=== PATIENT | male | born 1995 | race Caucasian/White ===

== ENCOUNTER 2021-07-14 11:37 | Emergency (ER) | payer OTHER ==
[2021-07-14 12:20] LABS: RED BLOOD COUNT 5.36 M/UL (4.20-5.50); WHITE BLOOD COUNT 6.6 K/UL (4.5-11.0)
[2021-07-14 12:35] LABS: BUN/CREATININE RATIO 9 (0-10)
== END 2021-07-14 14:30 | disposition home or self-care (01) ==
LOC: ER1 11:37
PROVIDERS: Physician Assistant
DX: F18.10 Inhalant abuse, uncomplicated (principal); R11.10 Vomiting, unspecified
CPT/HCPCS: 71045; 80053; 80307; 82550; 82553; 83735; 83874; 84484; 85025; 93005; 96374; 99284; J2405; J7030